=== PATIENT | female | born 1955 | race Caucasian/White ===

== ENCOUNTER 2017-04-07 15:17 | Emergency (ER) | payer MEDICAID, OTHER ==
[2017-04-07] MEDS ORDERED: NS 1,700 ML IV ONE (15:40)
--- NOTE | 2017-04-07 15:44 | EDPHY ---
H & P Stated Complaint: Fever, chills, LE nausea/vommitting. Reffered by Time Seen by Provider: 04/07/17 15:32 HPI/ROS: CHIEF COMPLAINT: Fevers chills HISTORY OF PRESENT ILLNESS: The patient is a 61-year-old female who comes from Dr. Boo's office upstairs for 4 days of fevers and chills and headaches as well as dysuria. She feels that the dysuria was the primary symptom initially. She had a a urinalysis checked that revealed white cells. She also had a flu swab sent that was negative and was referred here for IV antibiotics and hydration for possible pyelo versus meningitis. 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 She denies having any neck stiffness or pain. No respiratory symptoms. She has had nausea vomiting associated with the headaches. REVIEW OF SYSTEMS: Constitutional: See HPI denies: recent injury EENTM: denies: blurred vision, double vision, nose congestion Respiratory: denies: cough, shortness of breath Cardiac: denies: chest pain, irregular heart rate, lightheadedness, palpitations Gastrointestinal/Abdominal: denies: abdominal pain, diarrhea, nausea, vomiting, blood streaked stools Genitourinary: denies: dysuria, frequency, hematuria, pain Musculoskeletal: denies: joint pain, muscle pain Skin: denies: lesions, rash, jaundice, bruising Neurological: denies: headache, numbness, paresthesia, tingling, dizziness, weakness Hematologic/Lymphatic: denies: blood clots, easy bleeding, easy bruising Immunologic/allergic: denies: HIV/AIDS, transplant EXAM: GENERAL: Well-appearing, well-nourished and in no acute distress. HEAD: Atraumatic, normocephalic. EYES: Pupils equal round and reactive to light, extraocular movements intact, sclera anicteric, conjunctiva are normal. ENT: TMs normal, nares patent, oropharynx clear without exudates. Moist mucous membranes. NECK: Normal range of motion, supple without lymphadenopathy or JVD. LUNGS: Breath sounds clear to auscultation bilaterally and equal. No wheezes rales or rhonchi. HEART: Regular rate and rhythm without murmurs, rubs or gallops. ABDOMEN: Soft, nontender, normoactive bowel sounds. No guarding, no rebound. No masses appreciated. BACK: No CVA tenderness, no spinal tenderness, step-offs or deformities EXTREMITIES: Normal range of motion, no pitting or edema. No clubbing or cyanosis. NEUROLOGICAL: Cranial nerves II through XII grossly intact. Normal speech, normal gait. 5/5 strength, normal movement in all extremities, normal sensation PSYCH: Normal mood, normal affect. SKIN: Warm, dry, normal turgor, no visible rashes or lesions. Source: Patient Exam Limitations: No limitations - Personal History Current Tetanus/Diphtheria Vaccine: Yes Current Tetanus Diphtheria and Acellular Pertussis (TDAP): Yes - Medical/Surgical History Hx Asthma: No Hx Chronic Respiratory Disease: No Hx Diabetes: No Hx Cardiac Disease: No Hx Renal Disease: No Hx Cirrhosis: No Hx Alcoholism: No Hx HIV/AIDS: No Hx Splenectomy or Spleen Trauma: No Other PMH: viral meningitis, ectopic - Family History Significant Family History: No pertinent family hx - Social History Smoking Status: Never smoked Alcohol Use: Sober Drug Use: None Constitutional: Initial Vital Signs Temperature (C) 37.6 C 04/07/17 15:19 Heart Rate 78 04/07/17 15:19 Respiratory Rate 20 04/07/17 15:19 Blood Pressure 119/74 04/07/17 15:19 O2 Sat (%) 94 04/07/17 15:19 O2 Delivery Mode Room Air O2 (L/minute) 2 Allergies/Adverse Reactions: Penicillins Allergy (Verified 04/07/17 15:24) Home Medications: Medication Instructions Recorded Cephalexin [Keflex] 500 mg PO TID #21 cap 04/07/17 Estrace 04/07/17 Ondansetron Odt [Zofran Odt 4 mg 4 mg PO Q4 PRN #20 tab 04/07/17 (RX)] Medical Decision Making - Diagnostics Imaging Results: Imaging Impressions Chest X-Ray 04/07/17 15:40 Impression: There is no identifiable source for the patient's fever. Should there be progression of the patient's symptoms, short-term repeat chest radiography could be considered. Head CT 04/07/17 17:50 Impression: There is no acute intracranial abnormality identified on this unenhanced CT evaluation. If there is further clinical concern regarding the patient's symptoms, MR imaging is suggested, if not otherwise contraindicated. Findings were discussed with JAHAIRA WALTERS MD at 18:35, on 04/07/2017. Procedures: Procedure: Lumbar puncture. Indication: Fever, headache After verbal informed consent from patient explaining the risks including infection, bleeding, and neurologic damage, a lumbar puncture was performed after the patient was prepped and draped in the usual fashion. A 25 gauge blunt -tipped Bel needle was used. Successful on the 1st attempt. The back was anesthetized with 1% lidocaine. Approximately 4 cc of clear fluid was obtained. Opening pressure was not obtained. There were no complications. The procedure was performed by myself. ED Course/Re-evaluation: 5:50 p.m. the patient provided urine. It is positive however not overwhelming. I recommended we proceed with CT and lumbar puncture . The patient agrees. She has had a post LP headache with a previous LP. 650 the patient is feeling much better. Her headache is resolved. LP completed clear fluid sent to the lab. 9:00 p.m. the patient is feeling completely better. She is no longer nauseous. She no longer has headache. Her fever is controlled. I encouraged her to continue taking antipyretics. She has received a g of Keflex. Will give her prescription for this as well as Zofran. She is eager to go home. I did offer [facility] the hospital but she declines. I gave her strict return precautions. Differential Diagnosis: Partial list of the Differential diagnosis considered include but were not limited to; meningitis, urinary tract infection, sepsis, pyelonephritis and although unlikely based on the history and physical exam, I also considered influenza, pharyngitis, pneumonia. I discussed these differential diagnoses and the plan with the patient as well as the usual and expected course. The patient understands that the diagnosis is provisional and that in medicine we are not always correct and that further workup is often warranted. Usual and customary warnings were given. All of the patient's questions were answered. The patient was instructed to return to the emergency department should the symptoms at all worsen or return, otherwise to followup with the physician as we discussed. - Data Points Laboratory Results: Laboratory Results 04/07/17 16:20 04/07/17 18:10 04/07/17 04/07/17 04/07/17 18:10 18:10 17:50 WBC RBC Hgb Hct MCV MCH MCHC RDW Plt Count MPV Neut % (Auto) Lymph % (Auto) [place] % (Auto) Eos % (Auto) Baso % (Auto) Nucleat RBC Rel Count Absolute Neuts (auto) Absolute Lymphs (auto) Absolute Monos (auto) Absolute Eos (auto) Absolute Basos (auto) Absolute Nucleated RBC Immature Gran % Immature Gran # PT INR APTT ABG Lactic Acid 1.1 mmol/L mmol/L (0.5-1.6) VBG Lactic Acid Sodium 138 mEq/L mEq/L (134-144) Potassium 4.4 mEq/L mEq/L (3.5-5.2) Chloride 103 mEq/L mEq/L (97-110) Carbon Dioxide 23 mEq/l mEq/l (22-31) Anion Gap 12 mEq/L mEq/L (8-16) BUN 8 mg/dL mg/dL (7-23) Creatinine 0.6 mg/dL mg/dL (0.6-1.0) Estimated GFR > 60 Glucose 100 mg/dL mg/dL (70-100) Calcium 8.6 mg/dL mg/dL (8.5-10.4) Total Bilirubin 0.6 mg/dL mg/dL (0.1-1.4) Urine Color Urine Appearance Urine pH Ur Specific [place] Urine Protein Urine Ketones Urine Blood Urine Nitrate Urine Bilirubin Urine Urobilinogen Ur Leukocyte Esterase Urine RBC Urine WBC Ur Epithelial Cells Urine Bacteria Urine Glucose CSF Tube Number 4 CSF Appearance CLEAR (CLEAR) CSF Color COLORLESS (COLORLESS) CSF Supernatant COLORLESS (COLORLESS) CSF WBC 0 /mm3 /mm3 (0-5) CSF RBC 0 /mm3 /mm3 (0-0) CSF Glucose 64 mg/dL mg/dL (50-75) CSF Total Protein 28 mg/dL mg/dL (12-60) 04/07/17 04/07/17 04/07/17 17:12 16:49 16:49 WBC RBC Hgb Hct MCV MCH MCHC RDW Plt Count MPV Neut % (Auto) Lymph % (Auto) [place] % (Auto) Eos % (Auto) Baso % (Auto) Nucleat RBC Rel Count Absolute Neuts (auto) Absolute Lymphs (auto) Absolute Monos (auto) Absolute Eos (auto) Absolute Basos (auto) Absolute Nucleated RBC Immature Gran % Immature Gran # PT 19.2 SEC H SEC (12.0-15.0) INR 1.64 H (0.83-1.16) APTT 46.2 SEC H SEC (23.0-38.0) ABG Lactic Acid VBG Lactic Acid Sodium Cancelled Potassium Cancelled Chloride Cancelled Carbon Dioxide Cancelled Anion Gap Cancelled BUN Cancelled Creatinine Cancelled Estimated GFR Cancelled Glucose Cancelled Calcium Cancelled Total Bilirubin Cancelled Urine Color YELLOW Urine Appearance CLEAR Urine pH 6.5 (5.0-7.5) Ur Specific [place] <= 1.005 (1.002-1.030) Urine Protein NEGATIVE (NEGATIVE) Urine Ketones NEGATIVE (NEGATIVE) Urine Blood NEGATIVE (NEGATIVE) Urine Nitrate POSITIVE H (NEGATIVE) Urine Bilirubin NEGATIVE (NEGATIVE) Urine Urobilinogen 0.2 EU EU (0.2-1.0) Ur Leukocyte Esterase 1+ H (NEGATIVE) Urine RBC 0-1 /hpf /hpf (0-3) Urine WBC 3-5 /hpf H /hpf (0-3) Ur Epithelial Cells TRACE /lpf /lpf (NONE-1+) Urine Bacteria 3+ /hpf H /hpf (NONE SEEN) Urine Glucose NEGATIVE (NEGATIVE) CSF Tube Number CSF Appearance CSF Color CSF Supernatant CSF WBC CSF RBC CSF Glucose CSF Total Protein 04/07/17 04/07/17 16:49 16:20 WBC 8.63 10^3/uL 10^3/uL (3.80-9.50) RBC 4.24 10^6/uL 10^6/uL (4.18-5.33) Hgb 13.7 g/dL g/dL (12.6-16.3) Hct 42.8 % % (38.0-47.0) MCV 100.9 fL H fL (81.5-99.8) MCH 32.3 pg pg (27.9-34.1) MCHC 32.0 g/dL L g/dL (32.4-36.7) RDW 13.7 % % (11.5-15.2) Plt Count 220 10^3/uL 10^3/uL (150-400) MPV 10.1 fL fL (8.7-11.7) Neut % (Auto) 80.7 % H % (39.3-74.2) Lymph % (Auto) 9.3 % L % (15.0-45.0) [place] % (Auto) 9.5 % % (4.5-13.0) Eos % (Auto) 0.1 % L % (0.6-7.6) Baso % (Auto) 0.2 % L % (0.3-1.7) Nucleat RBC Rel Count 0.0 % % (0.0-0.2) Absolute Neuts (auto) 6.96 10^3/uL H 10^3/uL (1.70-6.50) Absolute Lymphs (auto) 0.80 10^3/uL L 10^3/uL (1.00-3.00) Absolute Monos (auto) 0.82 10^3/uL H 10^3/uL (0.30-0.80) Absolute Eos (auto) 0.01 10^3/uL L 10^3/uL (0.03-0.40) Absolute Basos (auto) 0.02 10^3/uL 10^3/uL (0.02-0.10) Absolute Nucleated RBC 0.00 10^3/uL 10^3/uL (0-0.01) Immature Gran % 0.2 % % (0.0-1.1) Immature Gran # 0.02 10^3/uL 10^3/uL (0.00-0.10) PT INR APTT ABG Lactic Acid VBG Lactic Acid < 0.5 mmol/L L mmol/L (0.7-2.1) Sodium Potassium Chloride Carbon Dioxide Anion Gap BUN Creatinine Estimated GFR Glucose Calcium Total Bilirubin Urine Color Urine Appearance Urine pH Ur Specific [place] Urine Protein Urine Ketones Urine Blood Urine Nitrate Urine Bilirubin Urine Urobilinogen Ur Leukocyte Esterase Urine RBC Urine WBC Ur Epithelial Cells Urine Bacteria Urine Glucose CSF Tube Number CSF Appearance CSF Color CSF Supernatant CSF WBC CSF RBC CSF Glucose CSF Total Protein Microbiology Results: MICROBIOLOGY 04/07/17 18:45 Cerebral Spinal Fluid Gram Stain - Final Medications Given: Discontinued Medications Acetaminophen (Tylenol) 1,000 mg PO EDNOW ONE Stop: 04/07/17 17:51 Last Admin: 04/07/17 17:57 Dose: 1,000 mg Dexamethasone (Decadron Injection) 10 mg IVP EDNOW ONE Stop: 04/07/17 20:03 Last Admin: 04/07/17 20:09 Dose: 10 mg Haloperidol Lactate (Haldol Injection) 2.5 mg IVP EDNOW ONE Stop: 04/07/17 20:02 Last Admin: 04/07/17 20:21 Dose: 2.5 mg Hydromorphone HCl (Dilaudid) 0.5 mg IVP EDNOW ONE Stop: 04/07/17 16:29 Last Admin: 04/07/17 16:35 Dose: 0.5 mg Hydromorphone HCl (Dilaudid) 0.5 mg IVP EDNOW ONE Stop: 04/07/17 18:23 Last Admin: 04/07/17 18:30 Dose: 0.5 mg Sodium Chloride (Ns) 1,700 mls @ 3,400 mls/hr 30 ml/kg infuse over 30 min ( 1700 ml) IV EDNOW ONE PRN Reason: Protocol Stop: 04/07/17 16:09 Last Admin: 04/07/17 16:01 Dose: 1,700 mls Sodium Chloride (Ns) 1,000 mls @ 0 mls/hr IV ONCE ONE PRN Reason: Wide Open Stop: 04/07/17 18:01 Last Admin: 04/07/17 18:00 Dose: 1,000 mls Ceftriaxone Sodium 1 gm/ (Sodium Chloride) 100 mls @ 200 mls/hr IV EDNOW ONE PRN Reason: Protocol Stop: 04/07/17 19:30 Last Admin: 04/07/17 19:16 Dose: 100 mls Ibuprofen (Motrin) 400 mg PO EDNOW ONE Stop: 04/07/17 18:59 Last Admin: 04/07/17 19:01 Dose: 400 mg Ibuprofen (Motrin) 400 mg PO EDNOW ONE Stop: 04/07/17 19:48 Last Admin: 04/07/17 19:56 Dose: 400 mg Ketorolac Tromethamine (Toradol) 15 mg IVP EDNOW ONE Stop: 04/07/17 20:02 Last Admin: 04/07/17 20:07 Dose: 15 mg Metoclopramide HCl (Reglan Injection) 10 mg IVP EDNOW ONE Stop: 04/07/17 17:51 Last Admin: 04/07/17 17:59 Dose: 10 mg Departure - Departure Disposition: Home, Routine, Self-Care Clinical Impression: Acute pyelonephritis Condition: Fair Instructions: Kidney Infection (ED) Referrals: Karri Boo MD [Primary Care Provider] - As per Instructions Prescriptions: Cephalexin [Keflex] 500 mg PO TID #21 cap Ondansetron Odt [Zofran Odt 4 mg (RX)] 4 mg PO Q4 PRN #20 tab PRN Reason: Nausea & Vomiting
[2017-04-07] MEDS ORDERED: HYDROmorphONE/DILAUDID 1 MG/ML INJ IVP ONE ×2 (16:28→18:22)
[2017-04-07 16:31] LABS: % IMMATURE GRANULYOCYTES 0.2 % (0.0-1.1); ABSOLUTE IMMATURE GRANULOCYTES 0.02 10^3/uL (0.00-0.10); ADD DIFF? NO; ADD MORPH? NO; ADD SCAN? NO; ATYPICAL LYMPHOCYTE FLAG 0 (0-99); FRAGMENT RBC FLAG 0 (0-99); HEMATOCRIT 42.8 % (38.0-47.0); HEMOGLOBIN 13.7 g/dL (12.6-16.3); LEFT SHIFT FLG 0 (0-99); LIPEMIA HEMOLYSIS FLAG 80 (0-99); MEAN CELL HEMOGLOBIN 32.3 pg (27.9-34.1); MEAN CELL VOLUME 100.9 fL (81.5-99.8); MEAN PLATELET VOLUME 10.1 fL (8.7-11.7); PLATELET CLUMPS FLAG 30 (0-99); PLATELET COUNT 220 10^3/uL (150-400); RED BLOOD CELL COUNT 4.24 10^6/uL (4.18-5.33); RED CELL DISTRIBUTION WIDTH 13.7 % (11.5-15.2)
[2017-04-07 17:07] LABS: INR 1.64 (0.83-1.16); PROTIME(PATIENT) 19.2 SEC (12.0-15.0)
[2017-04-07 17:08] LABS: APTT 46.2 SEC (23.0-38.0)
[2017-04-07 17:23] LABS: COLOR YELLOW; LEUKOCYTE ESTERASE,URINE 1+ (NEGATIVE); NITRITE,URINE POSITIVE (NEGATIVE); PH,URINE 6.5 (5.0-7.5)
[2017-04-07 17:37] LABS: BACTERIA 3+ /hpf (NONE SEEN); RBC,URINE 0-1 /hpf (0-3)
[2017-04-07] MEDS ORDERED: ACETAMINOPHEN 500 MG TAB PO ONE (17:50)
[2017-04-07] MEDS ORDERED: METOCLOPRAMIDE 10 MG/2 ML VIAL IVP ONE (17:50)
[2017-04-07] MEDS ORDERED: NS 1,000 ML IV ONE (18:00)
[2017-04-07 18:38] LABS: ANION GAP 12 mEq/L (8-16); BILIRUBIN,TOTAL 0.6 mg/dL (0.1-1.4); CALCIUM 8.6 mg/dL (8.5-10.4); CARBON DIOXIDE 23 mEq/l (22-31); CHLORIDE 103 mEq/L (97-110); CREATININE 0.6 mg/dL (0.6-1.0); GLOMERULAR FILTRATION RATE > 60; GLUCOSE 100 mg/dL (70-100); POTASSIUM 4.4 mEq/L (3.5-5.2); SODIUM 138 mEq/L (134-144)
[2017-04-07] MEDS ORDERED: IBUPROFEN 200 MG TAB PO ONE ×2 (18:58→19:47)
[2017-04-07] MEDS ORDERED: NS 100 ML BAG (MINI-BAG) IV ONE (19:05)
[2017-04-07] MEDS ORDERED: KETOROLAC 30 MG/1 ML SDV IVP ONE (20:01)
[2017-04-07] MEDS ORDERED: HALOPERIDOL LACT 5 MG/ML INJ IVP ONE (20:01)
[2017-04-07] MEDS ORDERED: DEXAMETHASONE 10 MG/ML VIAL IVP ONE (20:02)
[2017-04-07 20:03] VITALS: RESP 16
[2017-04-07 20:08] LABS: CSF SUPERNATANT COLORLESS (COLORLESS)
[2017-04-07 20:15] LABS: CSF APPEARANCE CLEAR (CLEAR); CSF COLOR COLORLESS (COLORLESS); PROTEIN, CSF 28 mg/dL (12-60); WBC, CSF 0 /mm3 (0-5)
[2017-04-07 21:14] VITALS: BP 95/54; PULSE 71; TEMP 99.3; O2SAT 92
== END 2017-04-07 21:33 | disposition home or self-care (01) ==
LOC: CED 15:17
PROC: 009U3ZX Drainage of Spinal Canal, Percutaneous Approach, Diagnostic (ICD-10-PCS; principal; 2017-04-07)
DX: N10 Acute pyelonephritis (principal); B96.20 Unspecified Escherichia coli [E. coli] as the cause of diseases classified elsewhere; R51 Headache; E86.9 Volume depletion, unspecified
CPT/HCPCS: 70450-PO; 71020-PO; 80048-PO; 81003-PO; 81015-PO; 82247-PO; 83605-PO; 85025-PO; 85610-PO; 85730-PO; 96365; J0696; J1100; J1170; J1885; J2765

== ENCOUNTER → 2017-12-30 | Outpatient (CLI) | payer MEDICAID | LOC: FIMAGING 07:00 | PROVIDERS: ATTEND Internal Medicine | DX: S83.242A Other tear of medial meniscus, current injury, left knee, initial encounter (principal); S83.282A Other tear of lateral meniscus, current injury, left knee, initial encounter; M22.42 Chondromalacia patellae, left knee; M25.462 Effusion, left knee; M71.22 Synovial cyst of popliteal space [Baker], left knee; R93.6 Abnormal findings on diagnostic imaging of limbs; M25.562 Pain in left knee ==